=== PATIENT | female | born 1945 | race Caucasian/White ===

== ENCOUNTER 2018-10-19 11:54 | Inpatient (IN) ==
[2018-10-19] MEDS ORDERED: ALBUTEROL/IPRATROPIUM 3 ML NEB RESP TX STA (12:16)
[2018-10-19 12:27] LABS: Basophils # 0.1 10*3/uL (0.0-0.2); Basophils % 0.5 % (0.0-0.8); Eosinophils # 0.1 10*3/uL (0.0-0.87); Eosinophils % 0.4 % (0.00-10.9); Hematocrit 51.8 VOL% (35.7-47.0); Hemoglobin 17.4 GM/DL (12.0-16.0); Immature Granulocytes % 0.8 %; Lymphocytes # 1.7 10*3/uL (1.4-4.0); Lymphocytes % 14.5 % (21.3-54.2); Mean Corpuscular HGB Conc 33.6 GM/DL (32-36); Mean Corpuscular Hemoglobin 30 PG (27-34); Mean Platelet Volume 11.3 FL (9.6-12.0); Monocytes # 1.1 10*3/uL (0.11-0.8); Monocytes % 9.5 % (1.7-12.7); Neutrophils # 8.9 10*3/uL (1.4-7.4); Neutrophils % 74.3 % (38.7-73.9); Platelet Count 326 T/CUMM (130-400); Red Blood Count 5.82 MC/CUMM (3.8-5.5); Red Cell Distribution Width 12.1 % (9.3-17.3)
[2018-10-19 12:36] LABS: PT Patient Result 11.2 SECS
[2018-10-19] MEDS ORDERED: ALBUTEROL NEB SOLN 5 MG/ML 20 ML/BOTTLE CONT NEB STA (12:43)
[2018-10-19 12:46] LABS: Blood Urea Nitrogen 13 MG/DL (7-18); Calcium 9.2 MG/DL (8.5-10.1); Glucose 121 MG/DL (74-106); Osmolality,Calculated 268.2 MOS/KG (273-304); Potassium 3.3 MMOL/L (3.5-5.1); Sodium 134 MMOL/L (136-145); Troponin I 0.017 NG/ML (0.00-0.045)
[2018-10-19] MEDS ORDERED: LACTULOSE 20 GM/30 ML UDCUP PO PRN (14:01)
[2018-10-19] MEDS ORDERED: guaiFENesin/DM ER 600-30 MG TABLET PO PRN (14:01)
[2018-10-19] MEDS ORDERED: ALBUTEROL/IPRATROPIUM 3 ML NEB RESP TX PRN (14:01)
[2018-10-19] MEDS ORDERED: DOCUSATE SODIUM 100 MG CAPSULE PO PRN (14:01)
[2018-10-19] MEDS ORDERED: LEVOFLOXACIN INJ 500 MG in PREMIX 1 EACH IV STA (14:01)
[2018-10-19] MEDS ORDERED: NICOTINE 21 MG/24 HR PATCH TRANSDERM PRN (14:01)
[2018-10-19] MEDS: traMADol 50 MG TABLET PO SCH ×2 (18:20→21:56)
[2018-10-19] MEDS: AZITHROMYCIN INJ 500 MG in SODIUM CHLORIDE 0.9% 250 ML IV SCH (21:55)
[2018-10-19] MEDS: cefTRIAXone 1,000 MG in SYRINGE 1 EACH IV SCH (21:56)
[2018-10-20 05:28] LABS: Basophils % 0.3 % (0.0-0.8); Eosinophils # 0.2 10*3/uL (0.0-0.87); Eosinophils % 1.7 % (0.00-10.9); Hematocrit 48.3 VOL% (35.7-47.0); Immature Granulocytes % 0.8 %; Immature Granulocytes Absolute 0.07 #; Lymphocytes % 21.1 % (21.3-54.2); Mean Corpuscular HGB Conc 33.1 GM/DL (32-36); Mean Corpuscular Hemoglobin 30 PG (27-34); Mean Corpuscular Volume 90.1 FL (87-102); Mean Platelet Volume 11.2 FL (9.6-12.0); Monocytes # 1.2 10*3/uL (0.11-0.8); Monocytes % 12.9 % (1.7-12.7); Neutrophils # 5.9 10*3/uL (1.4-7.4); Neutrophils % 63.2 % (38.7-73.9); Platelet Count 285 T/CUMM (130-400); Red Blood Count 5.36 MC/CUMM (3.8-5.5); White Blood Count 9.3 T/CUMM (4-12)
[2018-10-20 05:59] LABS: Blood Urea Nitrogen 9 MG/DL (7-18); Calcium 8.9 MG/DL (8.5-10.1); Cholesterol 99 MG/DL (50-200); Glucose 110 MG/DL (74-106); HDL Cholesterol 29 MG/DL (40-60); Osmolality,Calculated 274.7 MOS/KG (273-304); Potassium 3.2 MMOL/L (3.5-5.1); Risk Ratio 3.41; Sodium 138 MMOL/L (136-145); Thyroid Stimulating Hormone < 0.005 uIU/ml (0.358-3.74); Triglycerides 109 MG/DL (2-150); VLDL CHOLESTEROL 21.8 MG/DL
[2018-10-20] MEDS: THEOPHYLLINE ER (24 HR) 400 MG TABLET PO SCH (10:29)
[2018-10-20] MEDS: TRIAMTERENE/HCTZ 37.5-25 MG CAPSULE PO SCH (10:30)
[2018-10-20] MEDS: traMADol 50 MG TABLET PO SCH ×4 (10:30→20:25)
[2018-10-20] MEDS: MONTELUKAST 10 MG TABLET PO SCH (10:31)
[2018-10-20] MEDS: PANTOPRAZOLE 40 MG TABLET PO SCH (10:31)
[2018-10-20] MEDS: Umeclidinium Brm/Vilanterol Tr [Anoro Ellipta] INH SCH (10:34)
[2018-10-20] MEDS: POTASSIUM CHLORIDE 20 MEQ TABLET PO PRN ×4 (11:38→17:18)
[2018-10-20] MEDS: TEMAZEPAM 15 MG CAPSULE PO PRN (20:25)
[2018-10-20] MEDS: cefTRIAXone 1,000 MG in SYRINGE 1 EACH IV SCH (20:26)
[2018-10-20] MEDS: AZITHROMYCIN INJ 500 MG in SODIUM CHLORIDE 0.9% 250 ML IV SCH (20:27)
[2018-10-21 01:04] LABS: Basophils % 0.3 % (0.0-0.8); Eosinophils # 0.3 10*3/uL (0.0-0.87); Eosinophils % 2.9 % (0.00-10.9); Hematocrit 49.5 VOL% (35.7-47.0); Hemoglobin 16.1 GM/DL (12.0-16.0); Immature Granulocytes Absolute 0.11 #; Lymphocytes # 2.6 10*3/uL (1.4-4.0); Lymphocytes % 24.9 % (21.3-54.2); Mean Corpuscular HGB Conc 32.5 GM/DL (32-36); Mean Corpuscular Hemoglobin 30 PG (27-34); Monocytes # 1.3 10*3/uL (0.11-0.8); Monocytes % 11.9 % (1.7-12.7); Neutrophils # 6.2 10*3/uL (1.4-7.4); Platelet Count 300 T/CUMM (130-400); Red Blood Count 5.38 MC/CUMM (3.8-5.5); Red Cell Distribution Width 12.2 % (9.3-17.3); White Blood Count 10.6 T/CUMM (4-12)
[2018-10-21 01:25] LABS: Calcium 9.1 MG/DL (8.5-10.1); Osmolality,Calculated 278.4 MOS/KG (273-304); Potassium 4.3 MMOL/L (3.5-5.1)
[2018-10-21] MEDS: THEOPHYLLINE ER (24 HR) 400 MG TABLET PO SCH (08:15)
[2018-10-21] MEDS: Umeclidinium Brm/Vilanterol Tr [Anoro Ellipta] INH SCH (08:16)
[2018-10-21] MEDS: MONTELUKAST 10 MG TABLET PO SCH (08:16)
[2018-10-21] MEDS: TRIAMTERENE/HCTZ 37.5-25 MG CAPSULE PO SCH (08:16)
[2018-10-21] MEDS: PANTOPRAZOLE 40 MG TABLET PO SCH (08:16)
[2018-10-21] MEDS: traMADol 50 MG TABLET PO SCH ×4 (08:16→21:23)
[2018-10-21] MEDS: methylPREDNISolone SOD SUC 40 MG/1 ML VIAL IV SCH ×3 (11:20→23:57)
[2018-10-21] MEDS: ALBUTEROL/IPRATROPIUM 3 ML NEB RESP TX SCH ×2 (14:03→19:44)
[2018-10-21] MEDS ORDERED: AZITHROMYCIN 250 MG TABLET PO SCH (21:00)
[2018-10-21] MEDS: TEMAZEPAM 15 MG CAPSULE PO PRN (21:22)
[2018-10-21] MEDS: cefTRIAXone 1,000 MG in SYRINGE 1 EACH IV SCH (21:23)
[2018-10-22] MEDS: ALBUTEROL/IPRATROPIUM 3 ML NEB RESP TX SCH ×4 (00:16→19:39)
[2018-10-22] MEDS: methylPREDNISolone SOD SUC 40 MG/1 ML VIAL IV SCH ×3 (05:09→16:30)
[2018-10-22 05:54] LABS: Basophils % 0.3 % (0.0-0.8); Hematocrit 51.6 VOL% (35.7-47.0); Hemoglobin 16.9 GM/DL (12.0-16.0); Immature Granulocytes % 0.9 %; Immature Granulocytes Absolute 0.06 #; Lymphocytes # 0.8 10*3/uL (1.4-4.0); Lymphocytes % 11.5 % (21.3-54.2); Mean Corpuscular HGB Conc 32.8 GM/DL (32-36); Mean Corpuscular Hemoglobin 30 PG (27-34); Mean Corpuscular Volume 90.4 FL (87-102); Mean Platelet Volume 11.2 FL (9.6-12.0); Monocytes # 0.3 10*3/uL (0.11-0.8); Monocytes % 4.1 % (1.7-12.7); Neutrophils # 5.7 10*3/uL (1.4-7.4); Neutrophils % 83.2 % (38.7-73.9); Platelet Count 335 T/CUMM (130-400); Red Blood Count 5.71 MC/CUMM (3.8-5.5); Red Cell Distribution Width 11.9 % (9.3-17.3); White Blood Count 6.9 T/CUMM (4-12)
[2018-10-22 06:39] LABS: Calcium 9.9 MG/DL (8.5-10.1); Free T4 (Free Thyroxine) 2.1 NG/DL (0.76-1.46); Osmolality,Calculated 277.8 MOS/KG (273-304); Potassium 4.2 MMOL/L (3.5-5.1)
[2018-10-22] MEDS: CITALOPRAM 40 MG TABLET PO SCH (08:52)
[2018-10-22] MEDS: Umeclidinium Brm/Vilanterol Tr [Anoro Ellipta] INH SCH (08:52)
[2018-10-22] MEDS: traMADol 50 MG TABLET PO SCH ×4 (08:52→21:21)
[2018-10-22] MEDS: MONTELUKAST 10 MG TABLET PO SCH (08:52)
[2018-10-22] MEDS: THEOPHYLLINE ER (24 HR) 400 MG TABLET PO SCH (08:52)
[2018-10-22] MEDS: PANTOPRAZOLE 40 MG TABLET PO SCH (08:52)
[2018-10-22] MEDS: cefTRIAXone 1,000 MG in SYRINGE 1 EACH IV SCH (21:19)
[2018-10-22] MEDS: TEMAZEPAM 15 MG CAPSULE PO PRN (21:20)
[2018-10-23] MEDS: methylPREDNISolone SOD SUC 40 MG/1 ML VIAL IV SCH ×5 (00:25→23:55)
[2018-10-23] MEDS: ALBUTEROL/IPRATROPIUM 3 ML NEB RESP TX SCH ×4 (01:23→19:29)
[2018-10-23] MEDS: traMADol 50 MG TABLET PO SCH ×4 (09:54→21:08)
[2018-10-23] MEDS: THEOPHYLLINE ER (24 HR) 400 MG TABLET PO SCH (09:54)
[2018-10-23] MEDS: MONTELUKAST 10 MG TABLET PO SCH (09:54)
[2018-10-23] MEDS: CITALOPRAM 40 MG TABLET PO SCH (09:54)
[2018-10-23] MEDS: PANTOPRAZOLE 40 MG TABLET PO SCH (09:54)
[2018-10-23] MEDS: Umeclidinium Brm/Vilanterol Tr [Anoro Ellipta] INH SCH (09:56)
[2018-10-23 11:56] LABS: Free T4 (Free Thyroxine) 1.67 NG/DL (0.76-1.46); Thyroid Stimulating Hormone < 0.005 uIU/ml (0.358-3.74)
[2018-10-23] MEDS: cefTRIAXone 1,000 MG in SYRINGE 1 EACH IV SCH (20:55)
[2018-10-23] MEDS: TEMAZEPAM 15 MG CAPSULE PO PRN (21:07)
[2018-10-23] MEDS: METOPROLOL TARTRATE 25 MG TABLET PO SCH (21:09)
[2018-10-24] MEDS: ALBUTEROL/IPRATROPIUM 3 ML NEB RESP TX SCH ×4 (01:13→19:34)
[2018-10-24] MEDS: methylPREDNISolone SOD SUC 40 MG/1 ML VIAL IV SCH ×2 (04:21→10:05)
[2018-10-24 05:13] LABS: Basophils % 0.1 % (0.0-0.8); Hematocrit 50.6 VOL% (35.7-47.0); Hemoglobin 16.6 GM/DL (12.0-16.0); Immature Granulocytes % 0.8 %; Immature Granulocytes Absolute 0.07 #; Lymphocytes # 0.6 10*3/uL (1.4-4.0); Lymphocytes % 7.1 % (21.3-54.2); Mean Corpuscular HGB Conc 32.8 GM/DL (32-36); Mean Corpuscular Hemoglobin 30 PG (27-34); Mean Corpuscular Volume 91.3 FL (87-102); Mean Platelet Volume 11.4 FL (9.6-12.0); Monocytes # 0.6 10*3/uL (0.11-0.8); Monocytes % 7.3 % (1.7-12.7); Neutrophils # 7.2 10*3/uL (1.4-7.4); Neutrophils % 84.7 % (38.7-73.9); Platelet Count 298 T/CUMM (130-400); Red Blood Count 5.54 MC/CUMM (3.8-5.5); Red Cell Distribution Width 12.2 % (9.3-17.3); White Blood Count 8.5 T/CUMM (4-12)
[2018-10-24 05:25] LABS: Calcium 9.5 MG/DL (8.5-10.1); Osmolality,Calculated 281.5 MOS/KG (273-304); Potassium 4.5 MMOL/L (3.5-5.1)
[2018-10-24] MEDS: Umeclidinium Brm/Vilanterol Tr [Anoro Ellipta] INH SCH (08:15)
[2018-10-24] MEDS: THEOPHYLLINE ER (24 HR) 400 MG TABLET PO SCH (09:57)
[2018-10-24] MEDS: METOPROLOL TARTRATE 25 MG TABLET PO SCH ×2 (09:57→21:38)
[2018-10-24] MEDS: CITALOPRAM 40 MG TABLET PO SCH (09:57)
[2018-10-24] MEDS: PANTOPRAZOLE 40 MG TABLET PO SCH (09:58)
[2018-10-24] MEDS: traMADol 50 MG TABLET PO SCH ×4 (09:58→21:39)
[2018-10-24] MEDS: MONTELUKAST 10 MG TABLET PO SCH (12:23)
[2018-10-24] MEDS: cefTRIAXone 1,000 MG in SYRINGE 1 EACH IV SCH (20:39)
[2018-10-24] MEDS: TEMAZEPAM 15 MG CAPSULE PO PRN (21:38)
[2018-10-24] MEDS ORDERED: methylPREDNISolone SOD SUC 40 MG/1 ML VIAL IV SCH (23:00)
[2018-10-25] MEDS: ALBUTEROL/IPRATROPIUM 3 ML NEB RESP TX SCH ×4 (00:50→20:18)
[2018-10-25 04:51] LABS: Basophils % 0.1 % (0.0-0.8); Hematocrit 48.8 VOL% (35.7-47.0); Hemoglobin 15.9 GM/DL (12.0-16.0); Immature Granulocytes % 0.6 %; Immature Granulocytes Absolute 0.09 #; Lymphocytes # 0.7 10*3/uL (1.4-4.0); Lymphocytes % 4.6 % (21.3-54.2); Mean Corpuscular HGB Conc 32.6 GM/DL (32-36); Mean Corpuscular Hemoglobin 30 PG (27-34); Mean Corpuscular Volume 91.9 FL (87-102); Mean Platelet Volume 11.4 FL (9.6-12.0); Monocytes # 1.1 10*3/uL (0.11-0.8); Monocytes % 7.6 % (1.7-12.7); Neutrophils # 12.8 10*3/uL (1.4-7.4); Neutrophils % 87.1 % (38.7-73.9); Platelet Count 266 T/CUMM (130-400); Red Blood Count 5.31 MC/CUMM (3.8-5.5); Red Cell Distribution Width 12.3 % (9.3-17.3); White Blood Count 14.7 T/CUMM (4-12)
[2018-10-25 05:22] LABS: Potassium 4.2 MMOL/L (3.5-5.1)
[2018-10-25 05:35] LABS: Lymphocytes 5 % (20-55); Platelet Estimate Normal; Polychromasia Few; Segmented Neutrophils 92 % (50-85); Total Cells Counted 100
[2018-10-25] MEDS: CITALOPRAM 40 MG TABLET PO SCH (08:52)
[2018-10-25] MEDS: THEOPHYLLINE ER (24 HR) 400 MG TABLET PO SCH (08:52)
[2018-10-25] MEDS: METOPROLOL TARTRATE 25 MG TABLET PO SCH ×2 (08:53→22:22)
[2018-10-25] MEDS: PANTOPRAZOLE 40 MG TABLET PO SCH (08:53)
[2018-10-25] MEDS: MONTELUKAST 10 MG TABLET PO SCH (08:53)
[2018-10-25] MEDS: traMADol 50 MG TABLET PO SCH ×4 (08:53→22:22)
[2018-10-25] MEDS: MEROPENEM 500 MG in SODIUM CHLORIDE 0.9% 100 ML IV SCH ×2 (10:48→18:21)
[2018-10-25] MEDS: methylPREDNISolone SOD SUC 40 MG/1 ML VIAL IV SCH ×2 (10:48→22:21)
[2018-10-25] MEDS: Umeclidinium Brm/Vilanterol Tr [Anoro Ellipta] INH SCH (10:48)
[2018-10-25] MEDS: TEMAZEPAM 15 MG CAPSULE PO PRN (22:22)
[2018-10-26] MEDS: ALBUTEROL/IPRATROPIUM 3 ML NEB RESP TX SCH ×3 (00:23→13:28)
[2018-10-26] MEDS: MEROPENEM 500 MG in SODIUM CHLORIDE 0.9% 100 ML IV SCH (04:36)
[2018-10-26 04:40] LABS: Basophils % 0.1 % (0.0-0.8); Hematocrit 49.5 VOL% (35.7-47.0); Immature Granulocytes % 0.8 %; Immature Granulocytes Absolute 0.07 #; Lymphocytes # 0.7 10*3/uL (1.4-4.0); Lymphocytes % 7.7 % (21.3-54.2); Mean Corpuscular HGB Conc 32.3 GM/DL (32-36); Mean Corpuscular Hemoglobin 30 PG (27-34); Mean Corpuscular Volume 91.7 FL (87-102); Mean Platelet Volume 11.4 FL (9.6-12.0); Monocytes # 0.7 10*3/uL (0.11-0.8); Neutrophils # 7.8 10*3/uL (1.4-7.4); Neutrophils % 84.4 % (38.7-73.9); Platelet Count 246 T/CUMM (130-400); Red Cell Distribution Width 12.3 % (9.3-17.3); White Blood Count 9.3 T/CUMM (4-12)
[2018-10-26 04:54] LABS: Calcium 8.7 MG/DL (8.5-10.1); Osmolality,Calculated 281.5 MOS/KG (273-304); Potassium 4.8 MMOL/L (3.5-5.1)
[2018-10-26] MEDS: THEOPHYLLINE ER (24 HR) 400 MG TABLET PO SCH (10:23)
[2018-10-26] MEDS: traMADol 50 MG TABLET PO SCH ×2 (10:24→13:41)
[2018-10-26] MEDS: PANTOPRAZOLE 40 MG TABLET PO SCH (10:24)
[2018-10-26] MEDS: MONTELUKAST 10 MG TABLET PO SCH (10:24)
[2018-10-26] MEDS: METOPROLOL TARTRATE 25 MG TABLET PO SCH (10:25)
[2018-10-26] MEDS: methylPREDNISolone SOD SUC 40 MG/1 ML VIAL IV SCH (10:26)
[2018-10-26] MEDS: Umeclidinium Brm/Vilanterol Tr [Anoro Ellipta] INH SCH (10:28)
[2018-10-26] MEDS: CITALOPRAM 40 MG TABLET PO SCH (10:29)
[2018-10-26] MEDS ORDERED: LEVOFLOXACIN INJ 500 MG in PREMIX 1 EACH IV SCH (11:30)
[2018-10-26] MEDS ORDERED: LEVOFLOXACIN INJ 250 MG in PREMIX 1 EACH IV SCH (13:00)
[2018-10-26 17:23] VITALS: BP 124/78
== END 2018-10-26 16:05 | disposition home or self-care (01) | DRG 178 ==
LOC: EDUNIT# → EDBD → N.ED 11:54 → N.EDINP 13:25 → SUATTDRO 13:25 → N.EDINP 17:56 → N.5E 17:57
PROVIDERS: ADMIT Internal Medicine; ATTEND Internal Medicine